=== PATIENT | male | born 1960 | race Caucasian/White ===

== ENCOUNTER 2019-06-11 07:53 | Day surgery (SDC) | payer OTHER ==
[~2019-06-11] VITALS: Ht 172.7 cm; Wt 103.4 kg
[2019-06-11] VITALS (10 sets, daily range): BP systolic 96–136; BP diastolic 72–85
[~2019-06-11 07:53] MED LIST: HEParin (CATH LAB) 2,000 ML IV ONE; LIDOCAINE 1% INJ 20 ML 20 ML VIAL ONE; NS IV 1000 ML 1,000 ML ONE
[2019-06-11] MEDS ORDERED: NS IV 1000 ML 1,000 ML IV SCH ×2 (08:15→13:06)
[2019-06-11 08:20] LABS: HEMOGLOBIN 16.2 G/DL (13.3-17.7); MEAN PLATELET VOLUME 8.3 FL (7.4-10.4); RED CELL DISTRIBUTION WIDTH 13.6 % (10.0-14.5); WHITE BLOOD COUNT 7.4 10^3/uL (4.3-11.0)
[2019-06-11] MEDS ORDERED: ATOR40TA70 PO (08:27)
[2019-06-11] MEDS ORDERED: MIRT30TA6 PO (08:27)
[2019-06-11] MEDS ORDERED: FLUO40CA12 PO (08:27)
[2019-06-11 08:36] LABS: PROTHROMBIN TIME PATIENT 13.6 SEC (12.2-14.7)
[2019-06-11 08:42] LABS: ALANINE AMINOTRANSFERASE 19 U/L (0-55); ALBUMIN 4.3 GM/DL (3.2-4.5); ALKALINE PHOSPHATASE 126 U/L (40-136); BILIRUBIN,TOTAL 0.6 MG/DL (0.1-1.0); BUN/CREATININE RATIO 21; CALCIUM 9.4 MG/DL (8.5-10.1); CARBON DIOXIDE 23 MMOL/L (21-32); CHLORIDE 102 MMOL/L (98-107); CHOLESTEROL 201 MG/DL (< 200); CREATININE SERUM 0.91 MG/DL (0.60-1.30); GFR ESTIMATED > 60; GLUCOSE 102 MG/DL (70-105); HDL CHOLESTEROL 36 MG/DL (40-60); SODIUM 134 MMOL/L (135-145); TOTAL PROTEIN 7.9 GM/DL (6.4-8.2); TRIGLYCERIDES 127 MG/DL (<150); VLDL CHOLESTEROL 25 MG/DL (5-40)
[2019-06-11] MEDS ORDERED: MIDAZOLAM 5 MG/5 ML (VERSED) VIAL ONE (10:21)
[2019-06-11] MEDS ORDERED: fentaNYL INJECTION 100 MCG/2 ML AMP ONE (10:21)
--- NOTE | 2019-06-11 10:56 | Cardiac Procedure Note-CS/ASA ---
Pre-Procedure Note Pre-Op Procedure Note H&P Reviewed The H&P was reviewed, patient examined and no changes noted. Date H&P Reviewed: Jun 11, 2019 Time H&P Reviewed: 10:56 Conscious Sedation Pre-Proced Time 10:56 ASA Score 3 For ASA 3 and 4: Consider anesthesia and medical clearance. Also, for patients with a history of failed moderate sedation consider anesthesia. Airway Lungs Heart ASA score ASA 1: a normal healthy patient ASA 2: a patient with a mild systemic disease (mid diabetes, controlled hypertension, obesity ASA 3: a patient with a severe systemic disease that limits activity (angina, COPD, prior Myocardial infarction) ASA 4: a patient with an incapacitating disease that is a constant threat to life (CHF, renal failure) ASA 5: a moribund patient not expected to survive 24 hrs. (ruptured aneurysm) ASA 6: a declared brain- patient whose organs are being harvested. For emergent operations, add the letter E after the classification Mallampati Classification Grade 2 Sedation Plan Analgesia, Amnesia, Plan communicated to team members, Discussed options with patient/fam, Discussed risks with patient/fam The patient is an appropriate candidate to undergo the planned procedure, sedation, and anesthesia. The patient immediately re-assessed prior to indication. BAM SORIA MD FACP FAC CCDS Jun 11, 2019 10:56
[2019-06-11] MEDS ORDERED: ASPI-999 PO (13:09)
--- NOTE | 2019-06-11 13:09 | Discharge Inst-Post CATH ---
Discharge Inst-CATH/EP Problems Reviewed?: Yes Post Cardiac Cath/EP D/C Inst Follow Up/Plan F/u with Dr Valentine in 2 weeks ACTIVITY * Go Home directly and rest. * Limit activity of the leg (or wrist if it was used) for 7 days including aerobics, swimming, jogging, bicycling, etc. * Restrict stair-climbing for 7 days if possible, if not, climb up with your non-cath leg, then bring together on the same step. * Avoid lifting, pushing, pulling or excessive movement of the affected extremity for 7 days. * Customary sexual activity may be resumed after 2 days-use caution not to use a position that strains or causes pain to the affected extremity. * No driving for 24 hours. * NO SMOKING. * Avoid straining for bowel movements for 7 days. * Gentle walking on level ground is allowed. * Returning to work will depend on the type of procedure and the results. Your doctor will discuss this with you. CALL YOUR DOCTOR FOR ANY OF THE FOLLOWING: *If bleeding from the puncture site occurs- Apply gentle pressure to site with clean cloth and call your doctor or EMS. * If a knot or lump forms under the skin, increases in size, or causes pain. * If bruising appears to be worsening or moving further down your leg instead of disappearing. * Temperature above 101 F. CARE OF YOUR GROIN INCISION; * Bruising or purple discoloration of the skin near the puncture site is common. * You may shower only, no bathtub bathing for 5 days. Be careful to avoid slipping as your leg may feel stiff. * If a closure device was used on your femoral artery, please see the attached guide regarding care of the device and your leg. * Leave dressing on FOR 24 hours. CARE OF YOUR WRIST INCISION; * Bruising or purple discoloration of the skin near the puncture site is common. * You may shower. * DO NOT submerge wrist. * Leave dressing on FOR 24 hours. BAM VALENTINE MD FACP FAC CCDS Jun 11, 2019 13:09
--- NOTE | 2019-06-11 13:10 | Discharge Inst-Cardiology ---
Discharge Inst-Cardiac Discharge Medications New Medications: Aspirin (Aspirin) 81 Mg Tab.chew 81 MG PO DAILY, #90 TAB 3 Refills Continued Medications: Atorvastatin Calcium (Atorvastatin Calcium) 40 Mg Tablet 40 MG PO DAILY, TAB Fluoxetine HCl (Prozac) 40 Mg Capsule 40 MG PO DAILY, CAP Mirtazapine (Mirtazapine) 30 Mg Tablet 30 MG PO HS, TAB Patient Instructions Patient Instructions: NO SMOKING BAM SORIA MD FACP FAC CCDS Jun 11, 2019 13:10
[2019-06-11] MEDS ORDERED: PATIENT MAY USE OWN MEDS, ALL PO SCH (13:15)
--- NOTE | 2019-06-11 14:34 | CARDIAC CATHETERIZATION ---
DATE OF SERVICE: 06/11/2019 CARDIAC CATHETERIZATION REPORT The patient is a 58-year-old man with multiple coronary artery disease risk factors who has been experiencing symptoms of chest discomfort that are suggestive of angina. Cardiac catheterization was carried out today after having obtained an informed consent. PROCEDURE: He was brought to the cardiac catheterization laboratory in a fasting state. Right groin was prepared and draped in the usual sterile fashion. Lidocaine 1% was used for local anesthesia. Modified Seldinger technique was used to advance a 5-Bengali sheath in right femoral artery. A 5-Bengali JL4 catheter was used for left coronary angiography. We used multiple catheters to engage the right coronary artery. 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 We were able to obtain subselective views with a 5-Bengali multipurpose catheter. We used a 5-Bengali pigtail catheter to carry out left heart catheterization and left ventricular angiography. Angiography of right femoral artery was carried out through the sheath. The site of sheath insertion was not suitable for device closure. Manual pressure was used to achieve hemostasis following sheath removal. He tolerated the procedure well. HEMODYNAMICS: Left ventricular end-diastolic pressure following coronary angiography was 9 mmHg. There is no significant pressure gradient on pullback across the aortic valve. Ascending aortic pressure was 89/68 with a mean of 54 mmHg. CORONARY ANGIOGRAPHY: Left main coronary artery, left anterior descending artery, left circumflex artery do not exhibit angiographically significant disease. The left circumflex artery is codominant with the right coronary artery. 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 It does not exhibit any dizziness in its proximal and mid portion. The very distal portion is somewhat difficult to visualize, but there does not appear to be significant stenoses. LEFT VENTRICULAR ANGIOGRAPHY: Left ventricular angiography was carried out in the right anterior oblique projection. Global left ventricular systolic function is normal. No regional wall motion abnormalities are seen. Left ventricular ejection fraction approximately 65%. AORTIC ROOT ANGIOGRAPHY: Aortic root angiography was also performed. This was done with the pigtail catheter after that pigtail catheter had been pulled back from the left ventricle. This study was performed to evaluate the origin of the right coronary artery that was very difficult to engage with regular catheters. Aortic root angiography did not indicate any significant aortic root, aneurysm or dissection. There does not appear to be significant aortic regurgitation. The right coronary artery was identified as having a high left-sided origin. CONCLUSIONS: 1. This study does not indicate angiographically significant coronary artery disease. 2. 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 3. Normal left ventricular end-diastolic pressure. 4. Normal global left ventricular systolic function with ejection fraction approximately 65%. DISCUSSION AND RECOMMENDATIONS: Based on results of the study, it appears appropriate to continue a conservative approach. Risk factor modification is advised. Outpatient followup is advised. Job ID: [id number] DocumentID: [id number] Dictated Date: 06/11/2019 11:46:26 Procurement Accountant Date: 06/11/2019 14:33:23 Dictated By: BAM SORIA MD, MA, FACP, FACC,
--- NOTE | 2019-06-11 15:20 | NUR ---
REPORT TO Bela BRASHER RN.
== END 2019-06-11 16:05 | disposition home or self-care (01) ==
LOC: CATH 07:53 → SDC 12:19 → CATH 16:05
PROVIDERS: ATTEND Internal Medicine Cardiovascular Disease
DX: I25.10 Atherosclerotic heart disease of native coronary artery without angina pectoris (principal); I73.9 Peripheral vascular disease, unspecified; E78.5 Hyperlipidemia, unspecified; J44.9 Chronic obstructive pulmonary disease, unspecified; R00.2 Palpitations; R06.00 Dyspnea, unspecified; F17.210 Nicotine dependence, cigarettes, uncomplicated; Z79.899 Other long term (current) drug therapy; Z82.49 Family history of ischemic heart disease and other diseases of the circulatory system
CPT/HCPCS: 36415; 80053; 80061; 85027; 85610; 85730; 87081; 93005; 93458; 93567

== ENCOUNTER → 2019-06-20 | Outpatient (CLI) | payer OTHER ==
[~2019-06-20] MED LIST changes: +ASPI-999 PO; +ATOR40TA70 PO; +FLUO40CA12 PO; -HEParin (CATH LAB) 2,000 ML IV ONE; -LIDOCAINE 1% INJ 20 ML 20 ML VIAL ONE; +MIRT30TA6 PO; -NS IV 1000 ML 1,000 ML ONE
== END ==
LOC: EDUNIT# 06-07 12:00 → CARD 13:55
PROVIDERS: ATTEND Nurse Practitioner Family
DX: I51.7 Cardiomegaly (principal)
CPT/HCPCS: 93306

== ENCOUNTER → 2019-07-05 | Outpatient (CLI) | payer OTHER ==
[~2019-07-05] MED LIST changes: +CATHETER FLUSH 10 ML SYR IV PRN; +HOLD METFORMIN - RECEIVED CONTRAST 20 ML VIAL IV SCH; +IOHEXOL 350 MG/ML 100 ML (OMNIPAQUE 350) VIAL IV ONE; +NS 100 ML (IVPB) BAG IV ONE; +RT-ALBUTEROL SULF 2.5 MG/3 ML PRE-MIX VIAL INH ONE
[2019-07-05 12:49] LABS: BUN/CREATININE RATIO 22; CREATININE SERUM 0.79 MG/DL (0.60-1.30); GFR ESTIMATED > 60
--- NOTE | 2019-07-05 14:14 | Diagnostic Imaging Report ---
PROCEDURE: CT chest with contrast only. TECHNIQUE: Multiple contiguous axial images were obtained through the chest after administration of intravenous contrast. Auto Exposure Controls were utilized during the CT exam to meet ALARA standards for radiation dose reduction. INDICATION: Chest discomfort. Tobacco use. COPD. FINDINGS: There is good opacification of the aorta and pulmonary arteries. The aortic root measures 3.2 cm. No evidence of aortic dissection. Pulmonary arteries appear normal. The lungs are well aerated. There does not appear to be significant air trapping at this time. There are no interstitial infiltrates or consolidated infiltrates. There is a small area of focal nodular change in the right upper lobe on the inferior portion just anterior to the major fissure. This overall region measures approximately 2 cm though largest nodule measures less than 5 mm. There is calcified granuloma in the left lung base near the diaphragm and laterally along the major fissure on the left measuring 7 mm. No mediastinal or hilar adenopathy of pathologic size. No pleural effusion. No blastic or lytic bony lesion. IMPRESSION: 1. There is a small patchy nodular area in the right lower lobe as described measuring approximately 2 cm in total area. This could represent inflammatory change. Early malignancy however could not be excluded. There is no associated adenopathy or pleural effusion. With the patient's history of smoking, would recommend short-term 2-3 month follow-up CT. Dictated by: Dictated on workstation # [id number]
== END ==
LOC: RT 12:05
PROVIDERS: ATTEND Internal Medicine Cardiovascular Disease
DX: J44.9 Chronic obstructive pulmonary disease, unspecified (principal); I51.7 Cardiomegaly; E78.5 Hyperlipidemia, unspecified; R91.8 Other nonspecific abnormal finding of lung field; Z72.0 Tobacco use
CPT/HCPCS: 36415; 71260; 82565; 84520; 94060; 94726; 94729

== ENCOUNTER 2019-11-04 05:40 | Outpatient (CLI) | payer OTHER ==
[~2019-11-04] VITALS: Ht 175.3 cm; Wt 110.0 kg
[~2019-11-04 05:40] MED LIST changes: -CATHETER FLUSH 10 ML SYR IV PRN; -HOLD METFORMIN - RECEIVED CONTRAST 20 ML VIAL IV SCH; -IOHEXOL 350 MG/ML 100 ML (OMNIPAQUE 350) VIAL IV ONE; -NS 100 ML (IVPB) BAG IV ONE; -RT-ALBUTEROL SULF 2.5 MG/3 ML PRE-MIX VIAL INH ONE
[2019-11-04] MEDS ORDERED: BUSP15TA60 PO (14:25)
[2019-11-04] MEDS ORDERED: FLUO20CA45 PO (14:25)
== END 2019-11-04 14:26 | disposition home or self-care (01) ==
LOC: PREOP 05:40
PROVIDERS: ATTEND Surgery
DX: Z01.818 Encounter for other preprocedural examination (principal)

== ENCOUNTER → 2020-02-12 | Outpatient (CLI) | payer SELFPAY ==
[~2020-02-12] MED LIST changes: +BUSP15TA60 PO; +FLUO20CA46 PO; +LURA20TA PO
--- NOTE | 2020-02-12 13:30 | Diagnostic Imaging Report ---
PROCEDURE: CT urinary tract, rule out kidney stone. TECHNIQUE: Multiple contiguous axial images were obtained through the abdomen and pelvis without the use of intravenous contrast. Auto Exposure Controls were utilized during the CT exam to meet ALARA standards for radiation dose reduction. INDICATION: Urinary frequency. Groin and scrotal pain. Symptoms of 4 months duration with hematuria. COMPARISON: There is no previous exam for direct comparison. The study is interpreted in correlation with limited overlapped views of the abdomen obtained during chest CT dated 07/05/2019. FINDINGS: A calculus in a lower pole calyx of the right kidney measures 6.3 mm and is nonobstructing. No radiodense ureteral stone. The unopacified urinary bladder shows no intraluminal calcifications. A questionable nodule measuring a diameter of about 9 mm at the superior margin of the bladder near the dome is present as seen on axial image 99 series 2 as well as coronal reconstruction image 65 series 602. This may be from near buckling of the undistended urinary bladder; however, a small mass adherent to the wall could not be excluded. Cystoscopic correlation may provide additional value as warranted. This patient has low density renal nodules bilaterally, largely measuring fluid in attenuation. A small exophytic lesion off the mid to lower third of the right kidney exophytic laterally has a diameter of 1.3 cm and may be hemorrhagic or solid. If this patient cannot tolerate intravenous contrast, a correlative ultrasound would be recommended. The unopacified liver, gallbladder, bile ducts, spleen, adrenals, and pancreas all appear normal. The aorta is nonaneurysmal. There is no bowel obstruction. The appendix is normal. There is no ascites, abscess, hematoma, or acute fluid collection. There is no evidence for abdominal/pelvic lymphadenopathy. 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 No acute appearing bony pathology. This patient's lung bases are nonacute. IMPRESSION: 1. Nonobstructing right nephrolithiasis. 2. Indeterminate findings between small bladder mass at the dome versus buckling of the mucosa of an incompletely distended urinary bladder. 3. Bilateral renal cysts are present, one of which shows a density, likely owing to intracystic complexity; however, a correlative ultrasound is recommended if this patient cannot tolerate intravenous contrast. Dictated by: Dictated on workstation # [id number]
== END ==
LOC: RAD 12:38
PROVIDERS: ATTEND Registered Nurse
DX: N20.0 Calculus of kidney (principal); N28.1 Cyst of kidney, acquired; R35.0 Frequency of micturition; N48.89 Other specified disorders of penis; R31.9 Hematuria, unspecified
CPT/HCPCS: 74176